=== PATIENT | male | born 1960 | race Caucasian/White ===

== ENCOUNTER 2025-03-05 06:46 | Day surgery (SDC) | payer MEDICARE, SELFPAY ==
--- OUTSIDE RECORDS SUMMARY | 2025-01-07 13:22 | XMS_ITS | Patient Health Record ---
Author Organization [facility] Address [address] [place] [address] Care Team Providers Care Geophysical Computer Name Role Phone STEPHIE PEREZ Primary Care Provider Kip Jenkins Jr Unavailable Allergies No Known Allergies Reason For Referral No Information Medications Medication SIG (Take, Route, Frequency, Duration) Notes Start Date End Date Status Vitamin B12 1000 MCG 1 tablet Orally Once a day Active Aspirin 81 81 MG 1 tablet Orally Once a day Active metFORMIN HCl 1000 MG 1 tablet with a me al Orally Once a day Active Metoprolol Succinate 50 MG 1 capsule Ora lly Once a day Active Jardiance 25 MG 1 tablet Orally Once a day Active Tamsulosin HCl 0.4 MG 1 capsule Orally O nce a day Active Irbesartan-hydroCHLOROthia zide 300-12.5 MG 1 tablet Orally Once a day Active Vitamin D 50 MCG (1999 [place]) 1 tablet Orally Once a day Active Social History Tobacco Use: Social History Observation Description Date Details (start date - stop date) Never Smoker NA - NA Tobacco Control (Standard) Question Answer Notes Tobacco use: Nonsmoker AUDIT-C (Standard) Question Answer Notes Did you have a drink contain ing alcohol in the past year? Yes How often did you have a dri nk containing alcohol in the past year? Monthly or less (1 point) How many drinks did you have on a typical day when you were drinking in the past year? Declined to specify (0 point) How often did you have six o r more drinks on one occasion in the past year? Never (0 point) Points 1 Interpretation Negative Problems Problem Type SNOMED Code ICD Code Onset Dates Problem Status W/U Status Risk Notes Problem Colon cancer screening (Z12.11) Active confirmed Problem Pre-procedure evaluation check (114502316) Encounter for other preprocedural examination (Z01.818) Active confirmed Problem Family History of Cancer of Colon (Situation) (549656587) Family history of colon cancer (Z80.0) Active confirmed Problem Long-term current use of drug therapy (236495056) watermaster (current) use of oral hypoglycemic drugs (Z79.84) Active confirmed Vital Signs Heart Rate 80 /min 12/10/2024 Blood pressure diastolic 01 mm Hg 12/10/2024 Height 64.5 in 12/10/2024 Blood pressure systolic 001 mm Hg 12/10/2024 Weight 171 lbs 12/10/2024 BMI 28.9 kg/m2 12/10/2024 Encounters Encounter Location Date Provider Diagnosis [facility] [address] [place] [address] 12/10/2024 Kip Martínez Jr Colon cancer screening Z12.11 ; Encounter for other preprocedural examination Z01.818 ; Family history of colon cancer Z80.0 and penitentiary (current) use of oral hypoglycemic drugs Z79.84 Assessments Encounter Date Diagnosis (ICD Code) Assessment Notes Treatment Notes Treatment Clinical Notes Section Notes 12/10/2024 Colon cancer screening (ICD-10 - Z12.11) We discussed colonoscopy today. We discussed risks and benefits of the procedure today. He understands these and agrees to proceed. He is advised to stop turmeric and aspirin 1 week before the procedure, Jardiance, 3 days before the procedure, and metformin the day before the procedure. 12/10/2024 Encounter for other preprocedural examination (ICD-10 - Z01.818) We discussed colonoscopy today. We discussed risks and benefits of the procedure today. He understands these and agrees to proceed. He is advised to stop turmeric and aspirin 1 week before the procedure, Jardiance, 3 days before the procedure, and metformin the day before the procedure. 12/10/2024 Family history of colon cancer (ICD-10 - Z80.0) We discussed colonoscopy today. We discussed risks and benefits of the procedure today. He understands these and agrees to proceed. He is advised to stop turmeric and aspirin 1 week before the procedure, Jardiance, 3 days before the procedure, and metformin the day before the procedure. 12/10/2024 penitentiary (current) use of oral hypoglycemic drugs (ICD-10 - Z79.84) We discussed colonoscopy today. We discussed risks and benefits of the procedure today. He understands these and agrees to proceed. He is advised to stop turmeric and aspirin 1 week before the procedure, Jardiance, 3 days before the procedure, and metformin the day before the procedure. Plan Of Treatment Future Test Test Name Order Date COLONOSCOPY 12/11/2024 Next Appt Details Provider Name:Kip gates , 02/19/2025 08:10:00 AM, [address] [place] [address] , [place], [place], [phone], Insurance Providers Payer Name Payer Address Payer Phone Subscriber Number Group Number Insured Name Patient Relationship to Insured Coverage Start Date Coverage End Date [employer] MEDI COMP (REFERR AL RENETTA D) [address] [address] [place], [place] [id number] BRIAN DE Self - patient is the insured 4 Medical (General) History Medical History History ICD Code BPH Elevated blood sugar/prediabetes Hypertension Umbilical hernia Hyperlipidemia Chronic kidney disease Elevated body mass index
--- OUTSIDE RECORDS SUMMARY | 2025-01-07 13:22 | XMS_ITS | Clinical Summary ---
Author Organization [address] [facility] Address [address] [place] [address] Phone Care Team Providers Care Billing Administrator Name Role Phone Shabbir Somers MD Primary Care Provider [phone] Allergies No known active allergies Medications aspirin 81 mg EC tablet Take 1 tablet (81 mg total) by mouth 1 (one) time each day. Active rutin/hesp/biof lav/C/kroexd994 (BIOFLEX ORAL) Take by mouth. Active coenzyme Q-10 200 mg capsule Take 1 capsule (200 mg total) by mouth 1 (one) time each day. Active rosuvastatin (CRESTOR) 10 mg tablet Take 1 tablet (10 mg total) by mouth 1 (one) time each day. Active irbesartan-hydr oCHLOROthiazide (AVALIDE) 300-12.5 mg per tablet Take 1 tablet by mouth 1 (one) time each day. Active empagliflozin (Jardiance) 25 mg tablet Take 1 tablet (25 mg total) by mouth 1 (one) time each day in the morning. Active metFORMIN (GLUCOPHAGE) 1,000 mg tablet Take 1 tablet (1,000 mg total) by mouth 2 (two) times a day with meals. Active metoprolol succinate (TOPROL-XL) 50 mg 24 hr tablet Take 1 tablet (50 mg total) by mouth 1 (one) time each day. Do not crush or chew. Active tamsulosin (FLOMAX) 0.4 mg 24 hr capsule Take by mouth 1 (one) time each day with breakfast. Capsules should be taken 30 minutes following the same meal each day. Active turmeric root extract 500 mg capsule Take by mouth. Activ e cholecalciferol (Vitamin D3) 50 mcg (2,000 unit) capsule Take 1 capsule (2,000 Units total) by mouth 1 (one) time each day. Active Social History Tobacco Use Types Packs/Day Years Used Date Smoking Tobacco: Never Assessed Sex and Gender Information Value Date Recorded Sex Assigned at Not on file Legal Sex Male 8:18 PM EST Gender Identity Not on file Sexual Orientation Not on file Plan of Treatment Health Maintenance Due Date Last Done Comments DTaP,Tdap,and Td Vaccines (1 - Tdap) 1978 Pneumococcal Vaccine: 50+ Ye ars (1 of 1 - PCV) 2009 Zoster Vaccines (1 of 2) 2009 RSV Immunization Adult Patie nts (1 - Risk 60-74 years 1-dose series) 2019 COVID-19 Vaccine (1 - 2023-2 5 season) 2024 Depression Screening 05/27/2024 Abdominal Aortic Aneurysm (A AA) Screen 08/12/2024 Cholesterol Screening (Lipid Panel) 08/12/2024 Colorectal Cancer Screening: Colonoscopy 08/12/2024 Falls Risk Assessment 08/12/2024 Hepatitis C Screening 08/12/2024 Medicare Annual Wellness Visit 08/12/2024 Social Influencers of Health Screening 08/12/2024 Influenza Vaccine (#1) 2025 HIB Vaccines Aged Out No longer eligi ble based on patient's age to complete this topic HPV Vaccines Aged Out No longer eligi ble based on patient's age to complete this topic Hepatitis A Vaccines Aged Out No long er eligible based on patient's age to complete this topic Hepatitis B Vaccines Aged Out No long er eligible based on patient's age to complete this topic IPV Vaccines Aged Out No longer eligi ble based on patient's age to complete this topic MMR Vaccines Aged Out No longer eligi ble based on patient's age to complete this topic Meningococcal ACWY Vaccine Aged Out N o longer eligible based on patient's age to complete this topic Meningococcal B Vaccine Aged Out No l onger eligible based on patient's age to complete this topic RSV Immunization Patients Un didi 20 months Aged Out No longer eligible b ased on patient's age to complete this topic Varicella Vaccines Aged Out No longer eligible based on patient's age to complete this topic Insurance [employer] MEDICARE Care Teams Billing Administrator Relationship Specialty Start Date End Date Shabbir Somers MD [address] [place] [id number] PCP - General Internal Medicine 08/12/24
[2025-03-03 13:30] VITALS: BMI 28.9
--- NOTE | 2025-03-04 10:14 | HO.ANESPROP2 ---
Documented by User: Danielle Dial NP 03/04/25 10:24 HPI - Anesthesia Eval Consult details Narrative: 64yo M for Colonoscopy Anesthesia Pre-Procedure Meds Is the patient on any of the following meds?: SGLT2 Inhib PMFSH Past Medical History Medical History (Updated 03/03/25 @ 13:30 by Mckenna Euceda RN) Diabetes Hyperlipidemia Chronic renal insufficiency HTN (hypertension) BPH (benign prostatic hyperplasia) Surgical History Surgical History (Updated 03/03/25 @ 13:27 by Mckenna Euceda RN) H/O colonoscopy Social History Social History (Updated 03/03/25 @ 13:27 by Mckenna Euceda RN) Household Members: Spouse Patient Tobacco Use Status: Never used Tobacco Have you been hit, kicked, punched, or otherwise hurt by someone within the past year? If so, by whom?: No Are you DNR?: No Advance Directives: No Advance Directives Information Provided: Yes Meds Allergies Allergy/AdvReac Type Severity Reaction Status Date / Time No Known Allergies Allergy Verified 03/03/25 13:26 Home Medications ?Medication ?Instructions ?Recorded ?Confirmed ?Last Taken ?Type aspirin 81 mg tablet,delayed 81 mg PO DAILY 03/03/25 03/03/25 02/26/25 History release dutasteride 0.5 mg capsule 0.5 mg PO DAILY 03/03/25 03/03/25 Unknown History empagliflozin 25 mg tablet 25 mg PO DAILY 03/03/25 03/03/25 03/02/25 History (Jardiance) irbesartan 300 1 tab PO DAILY 03/03/25 03/03/25 Unknown History mg-hydrochlorothiazide 12.5 mg tablet metformin 1,000 mg tablet 1,000 mg PO DAILY 03/03/25 03/03/25 Unknown History metoprolol succinate 50 mg 50 mg PO DAILY 03/03/25 03/03/25 03/05/25 History tablet,extended release 24 hr rosuvastatin 10 mg tablet 10 mg PO BEDTIME 03/03/25 03/03/25 Unknown History tamsulosin 0.4 mg capsule 0.8 mg PO DAILY 03/03/25 03/03/25 Unknown History Exam Height,Weight and Vital Signs: Height 5 ft 4.5 in Weight 77.564 kg Assessment and Plan Assessment Anesthesia Assessment: Chart Reviewed Documented by User: Ayush Ryan MD 03/05/25 07:23 [facility] Past Medical History Medical History (Updated 03/03/25 @ 13:30 by Mckenna Euceda RN) Diabetes Hyperlipidemia Chronic renal insufficiency HTN (hypertension) BPH (benign prostatic hyperplasia) Functional capacity: independent ambulation Family History Family history of problems with anesthesia: No Surgical History Surgical History (Updated 03/03/25 @ 13:27 by Mckenna Euceda RN) H/O colonoscopy History of Problems with Anesthesia: No Social History Social History (Updated 03/03/25 @ 13:27 by Mckenna Euceda RN) Household Members: Spouse Patient Tobacco Use Status: Never used Tobacco Have you been hit, kicked, punched, or otherwise hurt by someone within the past year? If so, by whom?: No Are you DNR?: No Advance Directives: No Advance Directives Information Provided: Yes Meds Allergies Allergy/AdvReac Type Severity Reaction Status Date / Time No Known Allergies Allergy Verified 03/03/25 13:26 Home Medications ?Medication ?Instructions ?Recorded ?Confirmed ?Last Taken ?Type aspirin 81 mg tablet,delayed 81 mg PO DAILY 03/03/25 03/03/25 02/26/25 History release dutasteride 0.5 mg capsule 0.5 mg PO DAILY 03/03/25 03/03/25 Unknown History empagliflozin 25 mg tablet 25 mg PO DAILY 03/03/25 03/03/25 03/02/25 History (Jardiance) irbesartan 300 1 tab PO DAILY 03/03/25 03/03/25 Unknown History mg-hydrochlorothiazide 12.5 mg tablet metformin 1,000 mg tablet 1,000 mg PO DAILY 03/03/25 03/03/25 Unknown History metoprolol succinate 50 mg 50 mg PO DAILY 03/03/25 03/03/25 03/05/25 History tablet,extended release 24 hr rosuvastatin 10 mg tablet 10 mg PO BEDTIME 03/03/25 03/03/25 Unknown History tamsulosin 0.4 mg capsule 0.8 mg PO DAILY 03/03/25 03/03/25 Unknown History Exam Exam Date and Time: 03/05/2026 Airway Mallampati Class: III TM Dist: >3cm Neck ROM: Full Loose/Missing/Broken Teeth: Yes Heart: rrr Lungs: ctab vesicular Assessment and Plan Assessment Anesthesia Assessment: Anesthesia Plan Discussed Final Anesthetic Review Family History of Problems with Anesthesia: No History of Problems with Anesthesia: No NPO: Yes ASA Class: II Final Preanesthetic Review: No Changes in Pt Med Stat, Meds/Allgs Chart Reviewed, Consent Obtained/Reviewed and Anes Risks/Benef Reviewed Patient Risk: Low Procedure Risk: Low Anesthetic Plan Anesthetic Plan: MAC: Disposition: Standard PACU
[2025-03-05 06:48] VITALS: BP 120/75; PULSE 82; RESP 16; TEMP 36.9; O2SAT 98; BMI 28.4
[2025-03-05 07:02] LABS: Glucose, Whole Blood 111 mg/dL (60-115)
[2025-03-05] MEDS: Lactated Ringers 1,000 ML 100 ML IVCONT (07:15)
--- NOTE | 2025-03-05 07:35 | MHC.SHP ---
Pre-Procedural Eval Section A - 24 Hr Update-Section A only Date of Service: 03/05/25 Section B - Complete if H&P > 30 days Chief Complaint: screening,hx malignant neoplasm Details of Present Illness: see H&P no changes Relevant Family History (Specify if Yes): No Relevant Social History: None Present Medications: see Short Stay Collaborative assessment Medical History: No relevant PMH History of Previous Operations: No relevant previous surgery Allergies: Allergies Allergy/AdvReac Type Severity Reaction Status Date / Time No Known Allergies Allergy Verified 03/03/25 13:26 Review of Systems Sugical H&P ROS: Negative: Constitution, Cardiovascular, Respiratory, Neurological, Psychiatric, Hem-Onc, Allergic/Immunologic, Gastrointestinal, Genitourinary, Musculoskeletal, Integumentary, Endocrine and Eyes/Ears/Nose/Throat Exam Surgical H&P Exam: Normal: HEENT, Normal: Heart, Normal: Lungs, Normal: Extremities, Normal: Abdomen, Normal: Skin and Normal: Neurological Plan Diagnosis/Plan: Unchanged I have reviewed the history and physical and performed a pertinent physical examination on my patient. No changes have occurred unless specified. Time Spent With Patient Time: Total time managing care of this patient today ____ minutes.
[2025-03-05 08:11] VITALS: BP 104/67; PULSE 79; RESP 13; TEMP 36.4; O2SAT 95
[2025-03-05 08:35] VITALS: BP 106/75; PULSE 75; RESP 16; TEMP 36.4; O2SAT 96
--- NOTE | 2025-03-05 11:00 | OP_ITS ---
DATE OF SERVICE: 03/05/2025 SURGEON: Kip Martínez MD INDICATIONS: Colon cancer screening. PREOPERATIVE DIAGNOSIS: POSTOPERATIVE DIAGNOSIS: PROCEDURE PERFORMED: Colonoscopy to the terminal ileum with snare polypectomy. ESTIMATED BLOOD LOSS: COMPLICATIONS: ANESTHESIA: Monitored anesthesia care. ASSISTANTS: SPECIMENS: DESCRIPTION OF PROCEDURE: A history and physical was performed. The risks and benefits of the procedure were explained to the patient. Informed consent was obtained. The patient was placed in the left lateral decubitus position. A digital rectal exam was performed and was found to be normal. The Olympus pediatric video colonoscope was introduced into the rectum and advanced to the cecum. The cecum was identified by transillumination, palpation, and identification of ileocecal valve. Examination was performed. The scope was removed. He tolerated the procedure well and was returned to the recovery area in stable condition. FINDINGS: The terminal ileum was examined and appeared normal. The visualized colonic mucosa was normal. The quality of the prep was good. There was some liquid stool, which was washed and suctioned. A single polyp was identified and removed with a hot snare. The polyp was located at 70 cm from the anal verge and measured approximately 8 mm to 9 mm. No other polyps were identified. There was scattered diverticulosis. Retroflexed examination showed small internal hemorrhoids. IMPRESSION: Colon polyp. RECOMMENDATION: Follow up the biopsy results. MD LENNIE Coates/GOLDY / [id number]
== END 2025-03-05 08:59 | disposition home or self-care (01) ==
PROVIDERS: PCP Internal Medicine; Visit Provider Internal Medicine Gastroenterology
PROC: 0DJD8ZZ Inspection of Lower Intestinal Tract, Via Natural or Artificial Opening Endoscopic (ICD-10-PCS; CPT 45378; principal; 2025-03-05 07:30)
DX: Z12.11 Encounter for screening for malignant neoplasm of colon (principal); Z80.0 Family history of malignant neoplasm of digestive organs; Z79.84 Long term (current) use of oral hypoglycemic drugs; K63.5 Polyp of colon; K57.30 Diverticulosis of large intestine without perforation or abscess without bleeding; K64.8 Other hemorrhoids
CPT/HCPCS: 45385; 82947; 88305; J2003; J2371; J2704; J3010